=== PATIENT | male | born 1960 | race Caucasian/White ===

== ENCOUNTER 2017-01-15 19:46 | Emergency (ER) | payer OTHER ==
[2017-01-15] MEDS ORDERED: Diphtheria,Pertussis(Acell),Tetanus Vaccine 0.5 ML SDV inactive IM ONE (22:20)
[2017-01-15 22:24] VITALS: BP 92/53
--- NOTE | 2017-01-16 02:07 | EDM.PDOC ---
ED HPI Skin/Rash - General Chief Complaint: Laceration Stated Complaint: laceration Time Seen by Provider: 01/15/17 19:55 Source: Reports: Patient History Limitations: Reports: No limitations - History of Present Illness INITIAL COMMENTS - FREE TEXT/NARRATIVE: This is a 56yo M presenting to the ER for a laceration of the left big toe. Patient states he was moving a water pump and it fell on his toe when wearing socks. He has had a lot of bleeding and it is very painful. He denies a recent Tetanus. 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 - Past Surgical History Musculoskeletal Surgical History: Reports: Other (see below) Other Musculoskeletal Surgeries/Procedures:: Fx Lt ankle Social & Family History - Family History Family Medical History: Noncontributory - Tobacco Use Smoking Status *Q: Former Smoker Years of Tobacco use: 10 Packs/Tins Daily: 1 Used Tobacco, but Quit: Yes Month Tobacco Last Used: Oct Second Hand Smoke Exposure: No - Caffeine Use Caffeine Use: Reports: Coffee, Soda - Alcohol Use Days Per Week of Alcohol Use: 7 Number of Drinks Per Day: 2 Total Drinks Per Week: 14 Date of Last Drink: 01/15/14 Time of Last Drink: 17:30 - Recreational Drug Use Recreational Drug Use: No ED ROS GENERAL - Review of Systems Review Of Systems: ROS reveals no pertinent complaints other than HPI. ED EXAM, SKIN/RASH Exam: See Below Exam Limited By: No limitations General Appearance: alert, WD/WN, no apparent distress Ears: normal external exam Nose: normal inspection Throat/Mouth: Normal inspection Head: atraumatic, normocephalic Neck: normal inspection, supple Respiratory/Chest: no respiratory distress, lungs clear Cardiovascular: normal peripheral pulses, regular rate, rhythm Peripheral Pulses: 2+: dorsalis pedis (L), dorsalis pedis (R) Extremities: other (laceration of the left big toe medially 3cm.) Skin: Wound/incision Location, Skin: lower extremity, left ED SKIN PROCEDURES - Laceration/Wound Repair Left Lower Toes Lac/wound length in cm: 3 Appearance: subcutaneous, irregular Distal NVT: no tendon injury Anesthetic type: local Local anesthesia - Lidocaine (Xylocaine): 1% plain Local anesthetic volume: 1cc Skin prep: providone-iodine (betadine), sterile drape Exploration/Debridement/Repair: wound explored, minimal debridement Closed with: sutures Suture size: 3-0 Suture type: nylon, interrupted, simple Drain placement: No Sterile dressing applied: provider Tetanus status addressed: Yes Complications: No Course - Vital Signs Last Recorded V/S: Last Vital Signs Temp 36.6 C 01/15/17 19:55 Pulse 69 01/15/17 19:55 Resp 18 01/15/17 19:55 BP 92/53 L 01/15/17 19:55 Pulse Ox 95 01/15/17 19:55 - Orders/Labs/Meds Orders: Active Orders 24 hr Category Date Time Status Vaccines to be Administered [RC] PER UNIT ROUTINE Care 01/15/17 22:20 Active Meds: Medications Discontinued Medications Generic Name Dose Route Start Last Admin Trade Name Freq PRN Reason Stop Dose Admin Diphtheria/Tetanus/Acell Pertussis 0.5 ml 01/15/17 22:20 01/15/17 22:43 Boostrix IM 01/15/17 22:21 0.5 ml .ONCE ONE Administration Departure - Departure Time of Disposition: 20:45 Disposition: Home, Self-Care 01 Condition: good Clinical Impression: Laceration Instructions: Laceration Care, Adult, [id number] Forms: ED Department Discharge - Problem List Review Problem List Initiated/Reviewed/Updated: Yes - My Orders Last 24 Hours: My Active Orders 01/15/17 22:20 Vaccines to be Administered [RC] PER UNIT ROUTINE - Assessment/Plan Last 24 Hours: My Active Orders 01/15/17 22:20 Vaccines to be Administered [RC] PER UNIT ROUTINE Plan: Counseled on wound care, close monitoring, removal of sutures with PCP in 7-10 days. Discussed monitoring for infection, bleeding, dehiscence and f/u for any other concerns as well. Patient agrees on close monitoring, wound care and f/u.
== END 2017-01-15 20:40 | disposition home or self-care (01) ==
LOC: LB.ED 19:46
DX: S91.112A Laceration without foreign body of left great toe without damage to nail, initial encounter (principal); Z23 Encounter for immunization; Z87.891 Personal history of nicotine dependence; W20.8XXA Other cause of strike by thrown, projected or falling object, initial encounter; Y92.009 Unspecified place in unspecified non-institutional (private) residence as the place of occurrence of the external cause
CPT/HCPCS: 12002; 90471; 90715; 99283-25